=== PATIENT | male | born 1985 | race Caucasian/White ===

== ENCOUNTER → 2017-02-26 | Outpatient (CLI) | payer SELFPAY ==
[~2017-02-26] MED LIST: LORTAB 10/3251 TAB PO
--- NOTE | 2017-02-26 15:15 | RADIOLOGY REPORT PS360 ---
CLAVICLE-LT CLINICAL INDICATION: FU CLAVICLE FX ORDERING PHYSICIAN: PATY PERDOMO MD PATIENT AGE: 31 years COMPARISON: 02/05/2017 FINDINGS: Comminuted distal clavicle fracture once again noted with injury displacement of the distal fracture fragment and mild overriding of the fracture fragments. Inferior displacement is slightly improved. Glenohumeral joint is unremarkable. IMPRESSION: Healing comminuted distal clavicle fracture with inferior displacement of the distal fracture fragment and mild overlap
== END ==
LOC: RAD 13:05
DX: S42.022D Displaced fracture of shaft of left clavicle, subsequent encounter for fracture with routine healing (principal)